=== PATIENT | female | born 1940 | race Caucasian/White ===

== ENCOUNTER → 2018-02-14 | Outpatient (CLI) | payer MEDICARE, OTHER ==
[~2018-02-14] MED LIST: CIPRO; ESCI10; ESCI20 PO; HYDACE5325 PO; TRAACE PO; TRAZ100 PO; [UNRECOGNIZED DRUG - REMARK]
[2018-02-14 13:38] LABS: BASOPHILS ABSOLUTE AUTO 0.03 K/mm3 (0.00-0.23); BASOPHILS PERCENT AUTO 1 % (0-2); EOSINOPHILS ABSOLUTE AUTO 0.05 K/mm3 (0.00-0.68); EOSINOPHILS PERCENT AUTO 1 % (0-6); Hematocrit 33.5 % (33.0-51.0); Hemoglobin 10.7 g/dL (11.5-16.0); IMMATURE GRAN ABSOLUTE AUTO 0.01 K/mm3 (0.00-0.10); IMMATURE GRAN PERCENT AUTO 0 % (0-1); LYMPHOCYTES ABSOLUTE AUTO 1.13 K/mm3 (0.84-5.20); LYMPHOCYTES PERCENT AUTO 18 % (21-46); MONOCYTES ABSOLUTE AUTO 0.44 K/mm3 (0.16-1.47); MONOCYTES PERCENT AUTO 7 % (4-13); Mean Corpuscular HGB 29.2 pg (26.0-34.0); Mean Corpuscular HGB Conc 31.9 g/dL (31.5-36.5); Mean Corpuscular Volume 91 fL (80-100); NEUTROPHILS ABSOLUTE AUTO 4.47 K/mm3 (1.96-9.15); NEUTROPHILS PERCENT AUTO 73 % (41-73); Platelet Count 372 K/mm3 (150-400); RDW Coefficient Variation 12.3 % (11.7-14.2); RDW Standard Deviation 41.2 fL (35.1-46.3); Red Blood Cell Count 3.67 M/mm3 (3.80-5.20); White Blood Cell Count 6.13 K/mm3 (4.00-11.30)
[2018-02-14 13:55] LABS: Alanine Aminotransfer (ALT/SGP 11 U/L (12-78); Albumin, Blood 3.2 g/dL (3.4-5.0); Albumin/Globulin Ratio 0.9 (0.8-1.8); Alk Phos 121 U/L (50-136); Anion Gap 7 mmol/L (6-16); Aspartate Aminotrans (AST/SGOT 10 U/L (12-37); Bilirubin, Total 0.2 mg/dL (0.1-1.0); Blood Urea Nitrogen 16 mg/dL (8-24); Bun/Creatinine Ratio 18.2 (12.0-20.0); CO2, Blood 28 mmol/L (21-32); Calcium, Blood 9.7 mg/dL (8.5-10.1); Chloride, Blood 108 mmol/L (98-108); Creatinine, Blood 0.88 mg/dL (0.40-1.00); Globulin, Blood 3.4 g/dL (2.2-4.0); Glomerular Filtration Rate >60 (60-); Glucose, Blood 96 mg/dL (70-99); Potassium, Blood 4.1 mmol/L (3.5-5.5); Sodium, Blood 143 mmol/L (136-145); Total Protein, Blood 6.6 g/dL (6.4-8.2)
== END | disposition home or self-care (01) ==
LOC: LAB 13:31 → LAB SHORT 13:31
PROVIDERS: Hospitalist
DX: R10.13 Epigastric pain (principal)
CPT/HCPCS: 80053; 83690; 85025

== ENCOUNTER → 2018-03-08 | Outpatient (CLI) | payer MEDICARE, OTHER | END | disposition home or self-care (01) | LOC: LAB SHORT 17:31 → LAB 17:31 | DX: R35.0 Frequency of micturition (principal) | CPT/HCPCS: 87086 ==

== ENCOUNTER → 2018-11-21 | Outpatient (CLI) | payer MEDICARE, OTHER ==
[~2018-11-21] MED LIST changes: +DOCU100 PO; +LISI20 PO; +LORA.5 PO; +LORA1 PO; +METO25 PO; +MIRT15ST MM; +MORP20L PO; +Senna8.6 MG PO; +TOLT2ER PO; +TRAM50 PO; +VENL75ER PO
[2018-11-23 09:49] LABS: Bilirubin, Urine Neg (Neg); Blood, Urine Neg (Neg); Glucose Qualitative, Urine Neg (Neg); Ketones, Urine Neg (Neg); Leukocyte Esterase, Urine Neg (Neg); Nitrite, Urine Neg (Neg); Protein, Urine Neg (Neg); Urobilinogen, Urine NORM (Normal)
[2018-11-23 10:19] LABS: Appearance, Urine Clear (Clear); Color, Urine Yellow (P-Yellow)
== END | disposition home or self-care (01) ==
LOC: LAB 11:00 → LAB SHORT 11:00
PROVIDERS: Hospitalist
DX: N39.0 Urinary tract infection, site not specified (principal)
CPT/HCPCS: 81003

== ENCOUNTER → 2018-12-11 | Outpatient (CLI) | payer MEDICARE, OTHER ==
[2018-12-12 12:44] LABS: Bilirubin, Urine Neg (Neg); Blood, Urine Neg (Neg); Glucose Qualitative, Urine Neg (Neg); Ketones, Urine Neg (Neg); Leukocyte Esterase, Urine Neg (Neg); Nitrite, Urine Neg (Neg); Protein, Urine Neg (Neg); Urobilinogen, Urine NORM (Normal); pH, Urine 6.5 (5.0-8.0)
[2018-12-12 13:45] LABS: Appearance, Urine Clear (Clear); Color, Urine Pale Yellow (P-Yellow)
== END | disposition home or self-care (01) ==
LOC: LAB 18:30 → LAB SHORT 18:30
PROVIDERS: Hospitalist
DX: N39.0 Urinary tract infection, site not specified (principal)
CPT/HCPCS: 81003

== ENCOUNTER 2019-03-11 14:02 | Emergency (ER) | payer MEDICARE, OTHER ==
[~2019-03-11] VITALS: Ht 162.6 cm; Wt 56.7 kg
[2019-03-11] MEDS ORDERED: Prilosec Otc20 MG PO (14:20)
[2019-03-11] MEDS ORDERED: QUET25 PO (14:22)
[2019-03-11 14:36] LABS: Hematocrit 37.9 % (33.0-51.0); Mean Corpuscular HGB 28.4 pg (26.0-34.0); Mean Corpuscular HGB Conc 31.7 g/dL (31.5-36.5); Mean Corpuscular Volume 90 fL (80-100); Mean Platelet Volume 9.5 fL (9.1-12.4); Platelet Count 234 K/mm3 (150-400); RDW Standard Deviation 42.5 fL (35.1-46.3); Red Blood Cell Count 4.22 M/mm3 (3.80-5.20); White Blood Cell Count 7.61 K/mm3 (4.00-11.30)
[2019-03-11 14:55] LABS: Anion Gap 7 mmol/L (6-16); BAND PERCENT MAN 8 % (0-8); BASOPHILS PERCENT MAN 0 % (0-2); Blood Urea Nitrogen 15 mg/dL (8-24); CO2, Blood 29 mmol/L (21-32); Calcium, Blood 9.7 mg/dL (8.5-10.1); Chloride, Blood 99 mmol/L (98-108); Creatinine, Blood 0.88 mg/dL (0.40-1.00); EOSINOPHILS PERCENT MAN 0 % (0-6); Glomerular Filtration Rate >60 (60-); Glucose, Blood 122 mg/dL (70-99); LYMPHOCYTES ABSOLUTE MAN 0.91 K/mm3 (0.84-5.20); LYMPHOCYTES PERCENT MAN 12 % (21-46); MONOCYTES ABSOLUTE MAN 0.38 K/mm3 (0.16-1.47); MONOCYTES PERCENT MAN 5 % (4-13); NEUTROPHILS ABSOLUTE MAN 6.31 K/mm3 (1.96-9.15); Potassium, Blood 3.4 mmol/L (3.5-5.5); SEG NEUTROPHILS PERCENT MAN 75 % (41-73); Sodium, Blood 135 mmol/L (136-145); TOTAL CELLS COUNTED 100
[2019-03-11] MEDS ORDERED: ALBU2.5V5 NEB (15:43)
[2019-03-11] MEDS ORDERED: Vibramycin100 MG PO (15:43)
== END 2019-03-11 17:17 | disposition home or self-care (01) ==
LOC: ER 14:02
PROVIDERS: Emergency Medicine
DX: J18.9 Pneumonia, unspecified organism (principal); Z79.899 Other long term (current) drug therapy; F03.90 Unspecified dementia, unspecified severity, without behavioral disturbance, psychotic disturbance, mood disturbance, and anxiety; Z87.891 Personal history of nicotine dependence
CPT/HCPCS: 36415; 71046; 80048; 85025; 94640; 96361; 96365; 99284-25; J0696; J7030

== ENCOUNTER → 2019-04-24 | Outpatient (CLI) | payer MEDICARE, OTHER ==
[~2019-04-24] MED LIST changes: +ALBU2.5V5 NEB; +Prilosec Otc20 MG PO; +QUET25 PO; +Vibramycin100 MG PO
[2019-04-24 19:21] LABS: Source, Urine Clean Catch
[2019-04-24 19:30] LABS: Bilirubin, Urine Neg (Neg); Blood, Urine Neg (Neg); Glucose Qualitative, Urine Neg (Neg); Ketones, Urine Neg (Neg); Leukocyte Esterase, Urine 3+ (Neg); Nitrite, Urine Neg (Neg); Protein, Urine 1+ (Neg); Urobilinogen, Urine NORM (Normal)
[2019-04-24 19:34] LABS: Appearance, Urine Clear (Clear); Color, Urine Yellow (P-Yellow)
[2019-04-24 19:36] LABS: Bacteria Many /hpf; Red Blood Cells, Urine 0-2 /hpf (0-2); Squamous Epithelial Cells Few /hpf (Few); White Blood Cells, Urine 25-50 /hpf (0-5)
[2019-04-24 19:37] LABS: Transitional Epithelial Cells Rare /hpf (0-Rare)
== END | disposition home or self-care (01) ==
LOC: LAB 19:18 → LAB SHORT 19:18
PROVIDERS: Hospitalist
DX: N39.0 Urinary tract infection, site not specified (principal)
CPT/HCPCS: 81001; 87086

== ENCOUNTER 2019-09-17 04:17 | Observation (INO) | payer MEDICARE, OTHER ==
[~2019-09-17] VITALS: Ht 162.6 cm; Wt 60.9 kg
[2019-09-17] MEDS ORDERED: [UNRECOGNIZED DRUG - REMARK] (05:49)
[2019-09-17 06:19] LABS: BASOPHILS ABSOLUTE AUTO 0.01 K/mm3 (0.00-0.23); BASOPHILS PERCENT AUTO 0 % (0-2); EOSINOPHILS PERCENT AUTO 0 % (0-6); Hematocrit 36.8 % (33.0-51.0); Hemoglobin 11.7 g/dL (11.5-16.0); IMMATURE GRAN ABSOLUTE AUTO 0.04 K/mm3 (0.00-0.10); IMMATURE GRAN PERCENT AUTO 0 % (0-1); LYMPHOCYTES ABSOLUTE AUTO 1.06 K/mm3 (0.84-5.20); LYMPHOCYTES PERCENT AUTO 12 % (21-46); MONOCYTES ABSOLUTE AUTO 0.65 K/mm3 (0.16-1.47); MONOCYTES PERCENT AUTO 7 % (4-13); Mean Corpuscular HGB 29.5 pg (26.0-34.0); Mean Corpuscular HGB Conc 31.8 g/dL (31.5-36.5); Mean Corpuscular Volume 93 fL (80-100); Mean Platelet Volume 9.3 fL (9.1-12.4); NEUTROPHILS ABSOLUTE AUTO 7.32 K/mm3 (1.96-9.15); NEUTROPHILS PERCENT AUTO 81 % (41-73); Platelet Count 212 K/mm3 (150-400); RDW Coefficient Variation 12.7 % (11.7-14.2); RDW Standard Deviation 43.3 fL (35.1-46.3); Red Blood Cell Count 3.97 M/mm3 (3.80-5.20); White Blood Cell Count 9.08 K/mm3 (4.00-11.30)
[2019-09-17 06:33] LABS: Alanine Aminotransfer (ALT/SGP 16 U/L (12-78); Albumin, Blood 3.6 g/dL (3.4-5.0); Albumin/Globulin Ratio 1.1 (0.8-1.8); Alk Phos 94 U/L (50-136); Anion Gap 6 mmol/L (6-16); Aspartate Aminotrans (AST/SGOT 16 U/L (12-37); Bilirubin, Total 0.5 mg/dL (0.1-1.0); Blood Urea Nitrogen 25 mg/dL (8-24); Bun/Creatinine Ratio 29.1 (12.0-20.0); CO2, Blood 27 mmol/L (21-32); Calcium, Blood 8.9 mg/dL (8.5-10.1); Chloride, Blood 108 mmol/L (98-108); Creatinine, Blood 0.86 mg/dL (0.40-1.00); Globulin, Blood 3.3 g/dL (2.2-4.0); Glomerular Filtration Rate >60 (60-); Glucose, Blood 117 mg/dL (70-99); Potassium, Blood 4.4 mmol/L (3.5-5.5); Sodium, Blood 141 mmol/L (136-145); Total Protein, Blood 6.9 g/dL (6.4-8.2)
--- NOTE | 2019-09-17 08:20 | NUR ---
DNR BAND PLACED AFTER VERIFYING ORDER.
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
[2019-09-17 08:45] LABS: Source, Urine Clean Catch
[2019-09-17 08:50] LABS: Appearance, Urine Clear (Clear); Bilirubin, Urine Neg (Neg); Blood, Urine Neg (Neg); Color, Urine Yellow (P-Yellow); Glucose Qualitative, Urine Neg (Neg); Ketones, Urine Neg (Neg); Leukocyte Esterase, Urine 1+ (Neg); Nitrite, Urine Neg (Neg); Protein, Urine Neg (Neg); Specific Gravity, Urine 1.025 (1.003-1.022); Urobilinogen, Urine NORM (Normal)
[2019-09-17 08:58] LABS: Bacteria Rare /hpf; Red Blood Cells, Urine Not Seen /hpf (0-2); Squamous Epithelial Cells Few /hpf (Few); White Blood Cells, Urine 0-2 /hpf (0-5)
--- NOTE | 2019-09-17 13:34 | NUR ---
FAMILY REQ AN ETA FOR DR VILLALTA, WHO REPORTED THAT SHE WOULD NOT BE HERE UNTIL THIS AFTERNOON AND THAT FROM HER STANDPOINT THE PT DID NOT NEED TO BE NPO. DR SAMS NOTIFIED. SEE ORDERS. DR SAMS WAS ALSO NOTIFIED OF MEDICATION RECONCILIATION BEEN COMPLETED BY TALKING TO [facility] STAFF.
--- NOTE | 2019-09-17 15:52 | NUR ---
SHIFT SUMMARY PT BEEN ASSISTED WITH ADL'S PRN. PT BEEN MED PRN FOR PAIN. DR SAMS BEEN TO SEE PT. FAMILY IN ROOM MOST OF DAY. ALARM IN PLACE WHEN PT NOT IN ROOM. PT UP TO BATHROOM WITH SBA. PT HAS SLING IN PLACE TO L ARM.
--- NOTE | 2019-09-17 17:48 | NUR ---
DR SAMS HERE TO SEE PT. FAMILY PRESENT.
--- NOTE | 2019-09-17 18:40 | NUR ---
MEDICATIONS CLARIFIED WITH DR SAMS. PT S.L., SEE EMAR.
--- NOTE | 2019-09-18 04:44 | NUR ---
SHIFT SUMMARY: FLORENTINO RESTED FOR THE LATTER FEW HOURS OF THE SHIFT. SHE IS ABLE TO MAKE HER NEEDS KNOWN BUT DOES NOT USE HER CALL LIGHT. SHE IS ORIENTED TO PERSON, CONFUSED AND HAS HAD VISUAL HALLUCINATIONS. SHE IS TOLERATING PO INTAKE WELL. SHE AMBULATES TO THE BATHROOM WITH ONE PERSON MINIMAL ASSIST. PER THE NOTE, SHE IS NOT BEING TREATED WITH SURGERY AND CAN GO BACK TO [facility] TODAY. SHE HAS COMPLAINED OF PAIN FOR WHICH ORAL PAIN MEDICATION HAS ALLOWED HER TO REST. SHE IS LYING COMFORTABLY IN BED WITH HER EYES CLOSED AND CALL LIGHT IN REACH.
[2019-09-18] MEDS ORDERED: Norco 7.5-3251 EACH PO (10:44)
[2019-09-18] MEDS ORDERED: QUET25 PO (10:46)
[2019-09-18] MEDS ORDERED: Pyridium200 MG PO (10:47)
--- NOTE | 2019-09-18 13:25 | NUR ---
DISCHARGE D/C TO [facility]. DAUGHTER ARRANGED TRANSPORTATION. L ARM IN SLING. SCRIPTS SENT.
== END 2019-09-18 13:27 | disposition home or self-care (01) ==
LOC: ER 04:17 → SURS 04:26
PROVIDERS: Emergency Medicine; ADMIT Hospitalist
DX: S52.022A Displaced fracture of olecranon process without intraarticular extension of left ulna, initial encounter for closed fracture (principal); S42.292A Other displaced fracture of upper end of left humerus, initial encounter for closed fracture; I48.91 Unspecified atrial fibrillation; J96.11 Chronic respiratory failure with hypoxia; I10 Essential (primary) hypertension; J44.9 Chronic obstructive pulmonary disease, unspecified; G30.9 Alzheimer's disease, unspecified; F02.80 Dementia in other diseases classified elsewhere, unspecified severity, without behavioral disturbance, psychotic disturbance, mood disturbance, and anxiety; F32.9 Major depressive disorder, single episode, unspecified; Z66 Do not resuscitate; Z87.891 Personal history of nicotine dependence; Z79.899 Other long term (current) drug therapy; M19.90 Unspecified osteoarthritis, unspecified site; W19.XXXA Unspecified fall, initial encounter
CPT/HCPCS: 29105; 73030; 73080; 80053; 81001; 85025; 87086; 94760; 96374-59; 96375-59; 96376; 97116; 97161; 99284-25; G0378; J0690; J2405; J3010; J7030

== ENCOUNTER → 2019-12-25 | Outpatient (CLI) | payer OTHER ==
[~2019-12-25] MED LIST changes: +Norco 7.5-3251 EACH PO; +Pyridium200 MG PO; +[UNRECOGNIZED DRUG - REMARK]
[2019-12-25 18:16] LABS: Blood, Urine Neg (Neg); Glucose Qualitative, Urine Neg (Neg); Ketones, Urine Neg (Neg); Leukocyte Esterase, Urine Neg (Neg); Nitrite, Urine Pos (Neg); Protein, Urine Neg (Neg); Urobilinogen, Urine 3+ (Normal)
[2019-12-25 18:27] LABS: Appearance, Urine Clear (Clear); Bilirubin, Urine 2+ (Neg); Color, Urine Orange (P-Yellow)
[2019-12-25 18:29] LABS: Bacteria Few /hpf; Red Blood Cells, Urine 0-2 /hpf (0-2); Squamous Epithelial Cells Few /hpf (Few); White Blood Cells, Urine 0-2 /hpf (0-5)
== END | disposition home or self-care (01) ==
LOC: LAB 17:41 → LAB SHORT 17:41
PROVIDERS: Hospitalist
DX: N39.0 Urinary tract infection, site not specified (principal)
CPT/HCPCS: 81001; 87086

== ENCOUNTER → 2020-01-01 | Outpatient (CLI) | payer OTHER ==
[2020-01-01 11:46] LABS: Alanine Aminotransfer (ALT/SGP 15 U/L (12-78); Albumin, Blood 3.6 g/dL (3.4-5.0); Albumin/Globulin Ratio 1.1 (0.8-1.8); Alk Phos 87 U/L (50-136); Anion Gap 6 mmol/L (6-16); Aspartate Aminotrans (AST/SGOT 13 U/L (12-37); Bilirubin, Total 0.4 mg/dL (0.1-1.0); Blood Urea Nitrogen 24 mg/dL (8-24); Bun/Creatinine Ratio 25.6 (12.0-20.0); CO2, Blood 27 mmol/L (21-32); Calcium, Blood 9.2 mg/dL (8.5-10.1); Chloride, Blood 107 mmol/L (98-108); Creatinine, Blood 0.94 mg/dL (0.40-1.00); Globulin, Blood 3.3 g/dL (2.2-4.0); Glomerular Filtration Rate >60 (60-); Glucose, Blood 133 mg/dL (70-99); Potassium, Blood 4.2 mmol/L (3.5-5.5); Sodium, Blood 140 mmol/L (136-145); Total Protein, Blood 6.9 g/dL (6.4-8.2)
== END | disposition home or self-care (01) ==
LOC: LAB 10:48 → LAB SHORT 10:48
PROVIDERS: Hospitalist
DX: E80.6 Other disorders of bilirubin metabolism (principal)
CPT/HCPCS: 80053

== ENCOUNTER → 2020-02-13 | Outpatient (CLI) | payer OTHER ==
[2020-02-13 18:42] LABS: Bilirubin, Urine Neg (Neg); Blood, Urine Neg (Neg); Glucose Qualitative, Urine Neg (Neg); Ketones, Urine Neg (Neg); Leukocyte Esterase, Urine Neg (Neg); Nitrite, Urine Neg (Neg); Protein, Urine Neg (Neg); Urobilinogen, Urine NORM (Normal)
[2020-02-13 18:44] LABS: Appearance, Urine Clear (Clear); Color, Urine Yellow (P-Yellow); Urine Culture Indicated No (No)
== END ==
PROVIDERS: Hospitalist
DX: N39.0 Urinary tract infection, site not specified (principal)

== ENCOUNTER 2020-02-17 13:19 | Emergency (ER) | payer OTHER | END 2020-02-17 15:50 | disposition home or self-care (01) | DX: M25.552 Pain in left hip (principal); M25.551 Pain in right hip; Z79.899 Other long term (current) drug therapy; F03.90 Unspecified dementia, unspecified severity, without behavioral disturbance, psychotic disturbance, mood disturbance, and anxiety; Z87.891 Personal history of nicotine dependence; J43.9 Emphysema, unspecified; W19.XXXA Unspecified fall, initial encounter ==

== ENCOUNTER 2020-02-28 12:17 | Emergency (ER) | payer OTHER ==
[~2020-02-28] VITALS: Ht 165.1 cm; Wt 70.3 kg
[~2020-02-28 12:17] MED LIST changes: -ACET500 PO; -ALBU2.5V5; -ALBU3IS INH; -Ativan1 MG PO; -CEPH500 PO; -GUAI600T33 PO; -LISI5 PO; -LORA2 PO; -MILK OF MA400 MG/5 M PO; -MIRT15 PO; -MORP20L SL; -Norco 5-325 Ta1 EACH PO; -OMEP20ER PO; -QUET100 PO; -SENN187 PO; -Senna S Tablet1 EACH PO; -TOLT4 PO; -VENL150ER PO
[2020-02-28] MEDS ORDERED: LISI5 PO (12:36)
[2020-02-28] MEDS ORDERED: Ativan1 MG PO (13:26)
[2020-02-28] MEDS ORDERED: LORA2 PO (13:27)
[2020-02-28] MEDS ORDERED: MIRT15 PO (13:28)
[2020-02-28] MEDS ORDERED: OMEP20ER PO (13:28)
[2020-02-28] MEDS ORDERED: TRAM50 PO (13:29)
[2020-02-28] MEDS ORDERED: TOLT4 PO (13:29)
[2020-02-28] MEDS ORDERED: VENL150ER PO (13:29)
[2020-02-28] MEDS ORDERED: DOCU100 PO (13:30)
[2020-02-28] MEDS ORDERED: SENN187 PO (13:30)
[2020-02-28] MEDS ORDERED: ACET500 PO ×2 (13:31→14:12)
[2020-02-28] MEDS ORDERED: Norco 5-325 Ta1 EACH PO (13:32)
[2020-02-28] MEDS ORDERED: Seroquel Xr50 MG PO (13:32)
[2020-02-28] MEDS ORDERED: ALBU2.5V5 (13:33)
== END 2020-02-28 14:48 | disposition home or self-care (01) ==
LOC: ER 12:17
DX: M48.57XA Collapsed vertebra, not elsewhere classified, lumbosacral region, initial encounter for fracture (principal); M48.54XA Collapsed vertebra, not elsewhere classified, thoracic region, initial encounter for fracture; I10 Essential (primary) hypertension; Z79.899 Other long term (current) drug therapy; F03.90 Unspecified dementia, unspecified severity, without behavioral disturbance, psychotic disturbance, mood disturbance, and anxiety; F32.9 Major depressive disorder, single episode, unspecified; I48.91 Unspecified atrial fibrillation; J44.9 Chronic obstructive pulmonary disease, unspecified; Z87.891 Personal history of nicotine dependence
CPT/HCPCS: 72070; 72100; 99283-25; A9270-GY

== ENCOUNTER → 2020-02-28 | Outpatient (CLI) | payer OTHER ==
[~2020-02-28] MED LIST changes: +ACET500 PO; +ALBU2.5V5; +ALBU3IS INH; +Ativan1 MG PO; +CEPH500 PO; +GUAI600T33 PO; +LISI5 PO; +LORA2 PO; +MILK OF MA400 MG/5 M PO; +MIRT15 PO; +MORP20L SL; +Norco 5-325 Ta1 EACH PO; +OMEP20ER PO; +QUET100 PO; +SENN187 PO; +Senna S Tablet1 EACH PO; +TOLT4 PO; +VENL150ER PO
[2020-02-28 13:56] LABS: Blood, Urine 1+ (Neg); Glucose Qualitative, Urine Neg (Neg); Ketones, Urine 2+ (Neg); Leukocyte Esterase, Urine 3+ (Neg); Nitrite, Urine Neg (Neg); Protein, Urine 2+ (Neg); Specific Gravity, Urine 1.025 (1.003-1.022); Urobilinogen, Urine NORM (Normal)
[2020-02-28 14:04] LABS: Appearance, Urine Clear (Clear); Bilirubin, Urine 1+ (Neg); Color, Urine Yellow (P-Yellow)
[2020-02-28 14:06] LABS: Bacteria Mod /hpf; Calcium Oxalate Crystals Mod /hpf; Squamous Epithelial Cells Few /hpf (Few)
== END | disposition home or self-care (01) ==
LOC: LAB SHORT 13:34 → LAB 13:34
PROVIDERS: Internal Medicine Gastroenterology
DX: N39.0 Urinary tract infection, site not specified (principal)
CPT/HCPCS: 81001; 87086

== ENCOUNTER 2020-03-01 15:14 | Emergency (ER) | payer OTHER ==
[~2020-03-01] VITALS: Ht 165.1 cm; Wt 45.4 kg
[~2020-03-01 15:14] MED LIST changes: +ACET500 PO; +ALBU2.5V5; +Ativan1 MG PO; +LISI5 PO; +LORA2 PO; +MIRT15 PO; +Norco 5-325 Ta1 EACH PO; +OMEP20ER PO; +SENN187 PO; +Seroquel Xr50 MG PO; +TOLT4 PO; +VENL150ER PO
[2020-03-01 15:48] LABS: Source, Urine Catheter
[2020-03-01 15:50] LABS: Bilirubin, Urine Neg (Neg); Blood, Urine 1+ (Neg); Glucose Qualitative, Urine Neg (Neg); Ketones, Urine 3+ (Neg); Leukocyte Esterase, Urine 1+ (Neg); Nitrite, Urine Neg (Neg); Protein, Urine 2+ (Neg); Urobilinogen, Urine NORM (Normal)
[2020-03-01 16:08] LABS: Appearance, Urine Clear (Clear); Color, Urine Yellow (P-Yellow)
[2020-03-01 16:09] LABS: Bacteria Few /hpf; Mucus Light (0-Heavy); Red Blood Cells, Urine Not Seen /hpf (0-2); Squamous Epithelial Cells Not Seen /hpf (Few)
[2020-03-01] MEDS ORDERED: CEPH500 PO (16:16)
== END 2020-03-01 16:48 ==
LOC: ER 15:14
PROVIDERS: Student in an Organized Health Care Education/Training Program
DX: S01.01XA Laceration without foreign body of scalp, initial encounter (principal); N39.0 Urinary tract infection, site not specified; I10 Essential (primary) hypertension; I48.91 Unspecified atrial fibrillation; J44.9 Chronic obstructive pulmonary disease, unspecified; F03.90 Unspecified dementia, unspecified severity, without behavioral disturbance, psychotic disturbance, mood disturbance, and anxiety; F32.9 Major depressive disorder, single episode, unspecified; Z87.891 Personal history of nicotine dependence; W19.XXXA Unspecified fall, initial encounter
CPT/HCPCS: 12002; 81001; 87086; 99283-25

== ENCOUNTER 2020-03-05 15:16 | Observation (INO) | payer OTHER ==
[~2020-03-05] VITALS: Ht 152.4 cm; Wt 65.5 kg
[~2020-03-05 15:16] MED LIST changes: +CEPH500 PO; +QUET100 PO; -Seroquel Xr50 MG PO
[2020-03-05] MEDS ORDERED: Ativan1 MG PO ×2 (16:38→21:10)
[2020-03-05 18:40] LABS: BASOPHILS PERCENT AUTO 0 % (0-2); EOSINOPHILS PERCENT AUTO 0 % (0-6); Hematocrit 35.7 % (33.0-51.0); Hemoglobin 11.5 g/dL (11.5-16.0); IMMATURE GRAN ABSOLUTE AUTO 0.03 K/mm3 (0.00-0.10); IMMATURE GRAN PERCENT AUTO 0 % (0-1); LYMPHOCYTES ABSOLUTE AUTO 0.94 K/mm3 (0.84-5.20); LYMPHOCYTES PERCENT AUTO 13 % (21-46); MONOCYTES ABSOLUTE AUTO 1.01 K/mm3 (0.16-1.47); MONOCYTES PERCENT AUTO 14 % (4-13); Mean Corpuscular HGB 30.5 pg (26.0-34.0); Mean Corpuscular HGB Conc 32.2 g/dL (31.5-36.5); Mean Corpuscular Volume 95 fL (80-100); Mean Platelet Volume 8.9 fL (9.1-12.4); NEUTROPHILS ABSOLUTE AUTO 5.31 K/mm3 (1.96-9.15); NEUTROPHILS PERCENT AUTO 73 % (41-73); Platelet Count 243 K/mm3 (150-400); RDW Coefficient Variation 13.5 % (11.7-14.2); RDW Standard Deviation 47.2 fL (35.1-46.3); Red Blood Cell Count 3.77 M/mm3 (3.80-5.20); White Blood Cell Count 7.29 K/mm3 (4.00-11.30)
[2020-03-05 19:00] LABS: Alanine Aminotransfer (ALT/SGP 20 U/L (12-78); Albumin, Blood 3.9 g/dL (3.4-5.0); Albumin/Globulin Ratio 1.1 (0.8-1.8); Alk Phos 296 U/L (50-136); Anion Gap 7 mmol/L (6-16); Aspartate Aminotrans (AST/SGOT 24 U/L (12-37); Bilirubin, Total 1.1 mg/dL (0.1-1.0); Blood Urea Nitrogen 22 mg/dL (8-24); Bun/Creatinine Ratio 20.2 (12.0-20.0); CO2, Blood 25 mmol/L (21-32); Calcium, Blood 9.5 mg/dL (8.5-10.1); Chloride, Blood 100 mmol/L (98-108); Creatinine, Blood 1.09 mg/dL (0.40-1.00); Globulin, Blood 3.6 g/dL (2.2-4.0); Glomerular Filtration Rate 52 (60-); Glucose, Blood 108 mg/dL (70-99); Potassium, Blood 4.3 mmol/L (3.5-5.5); Sodium, Blood 132 mmol/L (136-145); Total Protein, Blood 7.5 g/dL (6.4-8.2); Troponin I <0.015 ng/mL (0.000-0.040)
[2020-03-05] MEDS ORDERED: QUET25 PO (20:02)
[2020-03-05] MEDS ORDERED: TOLT4 PO (21:10)
[2020-03-05] MEDS ORDERED: VENL75ER PO (21:11)
[2020-03-05] MEDS ORDERED: ACET500 PO (21:12)
--- NOTE | 2020-03-05 21:53 | NUR ---
2152 COMFORT CARE ARRIVED TO MEDICAL FLOOR VIA STRETCHER; ASSISTANCE NEED WITH TRANSFER. APPEARED VERY PAINFUL WITH ANY MOVEMENT. SHE SETTLED APPEARED LESS PAINFUL. REPOSITIONED. OFFERED H20. REMOVED DENTURES AND PLACED IN CONTAINER FOR CLEANING. ROUTINE BREIF CHECK APPEARED DRY. REPOSITIONED. NO ACUTE NEEDS AT THIS TIME. BED IN LOWEST POSITION; ALARM ON. CALL LIGHT AND BELONGINGS WITHIN REACH. TM.
--- NOTE | 2020-03-06 01:16 | NUR ---
2320 COMFORT CARE APPEARED PAINFUL, USED FLACC SCALE; MEDICATED PER EMAR. REPOSITIONED. NO ACUTE NEEDS AT THIS TIME. WCTM. CALL LIGHT AND BELONGINGS WITHIN REACH. BED IN LOWEST POSITION; ALARM ON.
[2020-03-06] MEDS ORDERED: Senna S Tablet1 EACH PO (01:42)
[2020-03-06] MEDS ORDERED: QUET100 PO (01:44)
[2020-03-06] MEDS ORDERED: MORP20L SL (01:45)
[2020-03-06] MEDS ORDERED: ALBU3IS INH (01:50)
--- NOTE | 2020-03-06 01:50 | NUR ---
0150 COMFORT CARE APPEARS VERY ANXIOUS TRYING TO EXIT BED AND DISROBING; WILL MEDICATE PER EMAR. ATTEMPTED TO UTILIZE BED TREVIÑO; CONTINUED ENCOURAGEMENT, UNSUCCESSFUL. WILL TRY AGAIN AT A LATER TIME. CHANGED BREIF. REPOSITION. CALL LIGHT AND BELONGIGNS WITHIN REACH. BED IN LOWEST POSITION; ALARM ON. WCTM.
[2020-03-06] MEDS ORDERED: MILK OF MA400 MG/5 M PO (01:51)
[2020-03-06] MEDS ORDERED: GUAI600T33 PO (01:55)
--- NOTE | 2020-03-06 03:55 | NUR ---
0355 COMFORT CARE APPEARS TO BE RESTING. NO ACUTE CHANGES AT THIS TIME. WCTM. BED IN LOWEST POSITION; ALARM ON. CALL LIGHT AND BELONGINGS WITHIN REACH.
--- NOTE | 2020-03-06 05:27 | NUR ---
SHIFT SUMMARY ALERT TO VERBAL STIMULI. ANSWERS QUESTIONS TO THE BEST OF HER ABILITY. CONFUSED AT TIMES. TAKES DIRECTION AT TIMES, BUT DIFFICULTY UNDERSTANDING TASK AT HAND. NO VOID THIS SHIFT; PLACED ON BEDPAN, WAS UNABLE TO UTILIZE. WILL BLADDER SCAN THIS AM TO MAKE SURE NO RETENTION. CONTINUES TO APPEAR PAINFUL WITH ANY REPOSITIONING; MEDICATING PER EMAR. VSS/AFEBRILE. NO ACUTE CHANGES NOTED OVERNIGHT. BED REMAINS IN LOWEST POSITION; ALARM ON. CALL LIGHT AND BELONGINGS WITHIN REACH. WCTM. REPORT TO ONCOMING RN.
--- NOTE | 2020-03-06 05:55 | NUR ---
0555 COMFORT CARE APPEARS TO BE MORE ALERT. ANSWERING QUESTIONS TO BEST OF HER KNOWLEDGE. STATES NO PAIN/DISCOMFORT AT THIS TIME. NO ACUTE CHANGES. BED REMAINS IN LOWEST POSITION; ALARM ON. CALL LIGHT AND BELONGINGS WITHIN REACH. WCTM.
--- NOTE | 2020-03-06 06:49 | NUR ---
3884 SPOKE TO FAMILY MEMBERS A COUPLE OF TIMES THIS NIGHT. DAUGHTERS (RENNY AND ODILON). THEY ARE VERY INVOLVED WITH HER CARE AND ODILON WOULD LIKE TO BE HERE OR HAVE A CONFERENCE WITH THE PHYSICIANS TO MAKE A PLAN OF CARE AND DECISIONS REGARDING HER CARE. PATIENT IS UNABLE TO MAKE MEDICAL DECISIONS FOR HERSELF. ODILON IS POA. WILL ALERT DAY SHIFT RN TO SITUATION
--- NOTE | 2020-03-06 08:00 | NUR ---
PT PLEASANT CONFUSED. ABLE TO TELL ME HER NAME. COULD NOT IDENTIFY HUSB, ONE DAUGHTER, OTHER WAS ABLE TO NAME. DENIES PAIN LYING IN BED. IS COMFORT CARE. H/R REG, NO MURMER NOTED. LUNGS CLEAR, RESP EASY, UNLABORED. ON RA DAYS. 2L O2 NITE, BT X4. NOW SURE LAST BM. ABD MED FIRM. DAUGHTER STATES NO BM FEW DAYS. GAVE DOCUSATE, [place]. WILL SPEAK TO DR CHAVES OTHER BOWEL CARE. VOIDS TO BSC 2 MAX ASST. BED IN LOW POSITION, CALL LITE IN REACH, BED ALARM ON FOR SAFETY
--- NOTE | 2020-03-06 09:00 | NUR ---
DAUGHTERS AND FATHER IN ROOM AT THIS TIME. ANSWERED MANY QUESTIONS. GOT THEM COFFEE. [facility] C[facility] HERE TO TALK WITH PT. DR CARVAJAL CAME IN SHORTLY. HOPING TO D.C TODAY. DR CARVAJAL CANCELLING CONSULT. CALLED DIRECTLY. CANCELLED.
--- NOTE | 2020-03-06 10:15 | NUR ---
Initial palliative care consult: Shae is a 79 year old with a history of dementia, breast cancer, depression, a-fib, aortic aneurysm, HTN, COPD, OA, osteoporosis. She resides at [facility] and has been there about 2 years according to her dtr. Her dtr, Kimberly, , Yossi, and DIL, Miesha, are all at the bedside and are asking questions re: her diagnosis of pelvic fracture, options for care and hospice. Miesha states that Shae has had 4 falls recently and has been seen in the ER several times re: her back, leg pain without a definitive diagnosis. Shae denies pain at present, she appears to be comfortable and falls asleep shortly after the visit started. Explained comfort measures and option of hospice. Discussed complications r/t pelvic fractures and answered many questions. Family is all in agreement that they want to keep Shae comfortable and not let her suffer. They determined after talking with PC RN and Dr. Ramirez that they would cancel the ortho consult and pursue getting her back to [facility] on hospice. Both her dtr and DIL have been in contact with [facility] staff this morning and would like to have Shae discharged back to [facility] with hospice today if possible. They are requesting [facility] services. Spoke with Tonya, network planner, and updated her. She will meet with family and arrange for Shae to return to [facility] with [facility]. Dr. Ramirez also updated on plan of care and he will write discharge orders once Shae's acceptance back to [facility] with hospice is confirmed. PC to continuye to remain available as needed for symptom management and discharge planning.
--- NOTE | 2020-03-06 13:15 | NUR ---
DISCHARGE REVIEWD WITH PT DAUGHTER. SHE IS POA. IV PULLED INTACT. NO TELE. TRANSPORT HERE. PT OUT AT 1319
== END 2020-03-06 13:19 | disposition hospice, home (50) ==
LOC: ER 15:16 → MEDS 15:17 → ENPENDDIS 03-06 10:00 → MEDS 03-06 13:19
PROVIDERS: Emergency Medicine; ADMIT Family Medicine
DX: S32.9XXA Fracture of unspecified parts of lumbosacral spine and pelvis, initial encounter for closed fracture (principal); W19.XXXA Unspecified fall, initial encounter; I10 Essential (primary) hypertension; I48.91 Unspecified atrial fibrillation; Z91.81 History of falling; Z66 Do not resuscitate; Z79.899 Other long term (current) drug therapy; Z87.891 Personal history of nicotine dependence; G30.9 Alzheimer's disease, unspecified; F02.80 Dementia in other diseases classified elsewhere, unspecified severity, without behavioral disturbance, psychotic disturbance, mood disturbance, and anxiety; M19.90 Unspecified osteoarthritis, unspecified site; G47.30 Sleep apnea, unspecified
CPT/HCPCS: 36415; 73502; 73700; 80053; 84484; 85025; 93005; 93010; 94762; 96374; 96375; 99285-25; G0378; J1170; J2060